=== PATIENT | female | born 1995 | race Caucasian/White ===

== ENCOUNTER 2017-02-28 08:50 | Emergency (ER) | payer OTHER ==
[~2017-02-28] VITALS: Ht 157.5 cm; Wt 60.0 kg
[2017-02-28] MEDS ORDERED: ALBU83IN INH (08:58)
[2017-02-28] MEDS ORDERED: ZYRT10CA PO (08:58)
[2017-02-28] MEDS ORDERED: TRAZADONE PO (08:58)
[2017-02-28] MEDS ORDERED: ALBU17IN INH ×2 (08:58→10:17)
[2017-02-28] MEDS ORDERED: ADV250INH INH (08:58)
[2017-02-28] MEDS ORDERED: methylPREDNISolone INJ 125 MG/2 ML VIAL (J2930) IM ONE (09:15)
[2017-02-28] MEDS ORDERED: IPRATROPIUM 0.5MG/ALBUTEROL 2.5MG INH SOL UD 3ML (DUONEB)(J7620) NEB ONE ×2 (09:15→09:30)
--- NOTE | 2017-02-28 09:58 | REP ---
Chest x-ray: Two views. History: Cough . Comparison study: No comparison . Findings: The lungs are well inflated and free of infiltrate. The pleural angles are sharp. The heart size is normal. Pulmonary vasculature is not increased. No significant bony abnormality is seen. Impression: Negative chest x-ray. Signed by Kwadwo Boss MD 02/28/2017 09:50 A
[2017-02-28] MEDS ORDERED: PRED20TA PO (10:17)
[2017-02-28] MEDS ORDERED: DULE200A IN (10:17)
[2017-02-28 10:24] VITALS: BP 148/77
== END 2017-02-28 10:26 | disposition home or self-care (01) ==
LOC: M ED 08:50
DX: J45.21 Mild intermittent asthma with (acute) exacerbation (principal); F17.210 Nicotine dependence, cigarettes, uncomplicated; Z79.51 Long term (current) use of inhaled steroids; Z79.899 Other long term (current) drug therapy; Z82.5 Family history of asthma and other chronic lower respiratory diseases
CPT/HCPCS: 71020; 81025; 94640; 96372; 99283; J2930

== ENCOUNTER → 2017-03-04 | Outpatient (CLI) | payer OTHER ==
[~2017-03-04] MED LIST: ADV250INH INH; ALBU17IN INH; ALBU83IN INH; DULE200A IN; PRED20TA PO; TRAZADONE PO; ZYRT10CA PO
--- NOTE | 2017-03-05 08:56 | REP ---
MAXILLOFACIAL CT WITHOUT CONTRAST: HISTORY: Septal deviation. Minimal mucosal thickening is present in the maxillary sinuses. A retention cyst or polyp is present in the right maxillary sinus. The remaining sinuses are clear. The middle and inferior nasal turbinates are partially paradoxical. There is jose eduardo bullosa of the left middle nasal turbinate. There is minimal deviation of the nasal septum to the right. A spur is present arising from the left side of the nasal septum. The spur abuts the left middle and inferior nasal turbinates. The cribriform plate, medial caraballo of the orbits and optic canals are intact. The carotid canals form a segment of the posterolateral caraballo of the sphenoid sinus. IMPRESSION: 1. Sinus mucosal thickening as described above. 2. Right maxillary sinus retention cyst or polyp. Signed by Darrin Bach MD 03/05/2017 09:09 A
== END ==
LOC: M RAD 18:19
PROVIDERS: ATTEND Family Medicine
DX: J34.2 Deviated nasal septum (principal)

== ENCOUNTER 2017-07-21 11:52 | Emergency (ER) | payer OTHER ==
[2017-07-21 16:05] LABS: ANION GAP 6 MEQ/L (8-16); BLOOD UREA NITROGEN 13 MG/DL (7-18); CALCIUM LEVEL 9.1 MG/DL (8.5-10.1); CARBON DIOXIDE LEVEL 25 MEQ/L (21-32); CHLORIDE LEVEL 106 MEQ/L (98-107); CPK CREATINE PHOSPHOKINASE 70 U/L (26-192); CREATININE FOR GFR 0.52 MG/DL (0.55-1.30); GLUCOSE, FASTING 87 MG/DL (70-100); MAGNESIUM LEVEL 1.9 MG/DL (1.4-2.0); POTASSIUM SERUM 4.4 MEQ/L (3.5-5.1); SODIUM LEVEL 137 MEQ/L (136-145); TROPONIN I < 0.02 NG/ML (< 0.10)
[2017-07-21 16:11] LABS: MB/CK RELATIVE INDEX 1.42 (< OR =4)
== END 2017-07-21 16:43 | disposition home or self-care (01) ==
LOC: M ED 11:52
DX: J45.998 Other asthma (principal); Z87.74 Personal history of (corrected) congenital malformations of heart and circulatory system; Z79.52 Long term (current) use of systemic steroids; Z79.899 Other long term (current) drug therapy
CPT/HCPCS: 71046